=== PATIENT | female | born 1970 | race Hispanic/Latino ===

== ENCOUNTER 2022-08-05 12:48 | Outpatient (CLI) | payer OTHER | END 2022-08-05 12:49 | disposition home or self-care (01) | LOC: BICULT 12:48 | PROVIDERS: ATTEND Nurse Practitioner Family | DX: K80.50 Calculus of bile duct without cholangitis or cholecystitis without obstruction (principal) | CPT/HCPCS: 76700 ==

== ENCOUNTER 2022-11-24 13:48 | Outpatient (CLI) | payer OTHER | END 2022-11-24 13:49 | disposition home or self-care (01) | LOC: BICMAMMO 13:48 | PROVIDERS: ATTEND Nurse Practitioner Family | DX: Z12.31 Encounter for screening mammogram for malignant neoplasm of breast (principal) | CPT/HCPCS: 77063; 77067 ==

== ENCOUNTER 2023-12-26 14:29 | Outpatient (CLI) | payer OTHER | END 2023-12-26 14:30 | disposition home or self-care (01) | LOC: BICMAMMO 14:29 | PROVIDERS: ATTEND Nurse Practitioner Family | DX: Z12.31 Encounter for screening mammogram for malignant neoplasm of breast (principal) | CPT/HCPCS: 77063; 77067 ==